=== PATIENT | male | born 1950 | race Caucasian/White ===

== ENCOUNTER 2023-08-18 17:40 | Inpatient (IN) | payer OTHER ==
[2023-08-18] VITALS (12 sets, daily range): BP systolic 100–144; BP diastolic 57–93
[~2023-08-18] VITALS: Ht 172.7 cm; Wt 87.2 kg
[~2023-08-18 17:40] MED LIST: ESCI10 PO; LISI5 PO
[2023-08-18 18:06] LABS: BASOPHILS ABSOLUTE AUTO 0.04 K/mm3 (0.00-0.23); BASOPHILS PERCENT AUTO 0 % (0-2); EOSINOPHILS ABSOLUTE AUTO 0.11 K/mm3 (0.00-0.68); EOSINOPHILS PERCENT AUTO 1 % (0-6); Hematocrit 46.4 % (37.0-53.0); Hemoglobin 15.6 g/dL (13.5-17.5); IMMATURE GRAN ABSOLUTE AUTO 0.04 K/mm3 (0.00-0.10); IMMATURE GRAN PERCENT AUTO 0 % (0-1); LYMPHOCYTES ABSOLUTE AUTO 4.21 K/mm3 (0.84-5.20); LYMPHOCYTES PERCENT AUTO 47 % (21-46); MONOCYTES ABSOLUTE AUTO 0.75 K/mm3 (0.16-1.47); MONOCYTES PERCENT AUTO 8 % (4-13); Mean Corpuscular HGB 36.8 pg (26.0-34.0); Mean Corpuscular HGB Conc 33.6 g/dL (31.5-36.5); Mean Corpuscular Volume 109 fL (80-100); Mean Platelet Volume 10.4 fL (9.1-12.4); NEUTROPHILS ABSOLUTE AUTO 3.89 K/mm3 (1.96-9.15); NEUTROPHILS PERCENT AUTO 43 % (41-73); Platelet Count 158 K/mm3 (150-400); RDW Coefficient Variation 13.2 % (11.7-14.2); RDW Standard Deviation 54.3 fL (35.1-46.3); Red Blood Cell Count 4.24 M/mm3 (4.30-5.90); White Blood Cell Count 9.04 K/mm3 (4.00-11.30)
[2023-08-18 18:08] LABS: Bicarbonate Venous 13.2 mmol/L (24.0-30.0); PCO2 Venous 40.3 mmHg (38-42); pH Blood Venous 7.13 (7.34-7.37)
[2023-08-18 18:25] LABS: International Normalized Ratio 1.14; Prothrombin Time Results 11.9 Sec (9.7-11.5)
[2023-08-18 18:28] LABS: Source, Urine Straight Cath
[2023-08-18 18:30] LABS: Appearance, Urine Clear (Clear); Bilirubin, Urine Neg (Neg); Blood, Urine 5+ (Neg); Color, Urine Yellow (P-Yellow); Glucose Qualitative, Urine Neg (Neg); Ketones, Urine 2+ (Neg); Leukocyte Esterase, Urine Neg (Neg); Nitrite, Urine Neg (Neg); Protein, Urine 2+ (Neg); Urobilinogen, Urine 1+ (Normal)
[2023-08-18 18:43] LABS: U Amphetamine Screen Not Detected; U Barbituate Screen Not Detected; U Benzodiazapine Screen Not Detected; U Buprenorphine Screen Not Detected; U Cannabinoids Screen Not Detected; U Cocaine Screen Not Detected; U Methadone Screen Not Detected; U Methamphetamine Screen Not Detected; U Opiates Screen Not Detected; U Oxycodone Screen Not Detected; U Phencyclidine Screen Not Detected
[2023-08-18 18:48] LABS: Calcium, Blood 8.5 mg/dL (8.5-10.1); Potassium, Blood 4.5 mmol/L (3.5-5.5)
[2023-08-18 18:49] LABS: Bacteria Few /hpf; Squamous Epithelial Cells Rare /hpf (Few)
[2023-08-18 18:49] LABS: Ethanol (Alcohol), Blood, Med <3 mg/dL; Magnesium, Blood 1.6 mg/dL (1.6-2.4)
[2023-08-18 21:20] LABS: Free Thyroxine 0.96 ng/dL (0.70-1.60)
[2023-08-18 21:43] LABS: Base Excess Venous -2.6 mmol/L; PCO2 Venous 49.6 mmHg (38-42); pH Blood Venous 7.29 (7.34-7.37)
--- NOTE | 2023-08-18 22:30 | NUR ---
PT ADMITTED TO ROOM ICU 6 FROM ED ARRIVING AT 0 THIS EVENING. PT SOMNULENT AT THIS TIME. DAUGHTER COMES TO ROOM AND IS ABLE TO ANSWER MEDICAL HISTORY FOR THIS PT. PT HAS HAD SEIZURE AT HOME, AND ONE IN EMERGENCY ROOM. PT HAD BITTEN HIS TONGUE WITH SEIZURE. PT INCONTINENT TO URINE. THIS CHANGED. PT'S DAUGHTER, JUAN RAMON, STATES THAT PT IS INDEPENDENT AT HOME. LIVES BY HIMSELF. ALSO ADDS THAT PT BEGINS TO DRINK HARD ALCOHOL AT 5 PM DAILY AND DRINKS, " MUCH HE CAN GET". LAST DRINK BEING ON 08-17. WILL REVIEW CHART AND PLAN OF CARE FOR THIS PT.
[2023-08-19] VITALS (22 sets, daily range): BP systolic 104–138; BP diastolic 58–91
--- NOTE | 2023-08-19 00:12 | NUR ---
NO SEIZURE ACTIVITIES HAVE BEEN NOTED IN ICU. PT DOES AWAKEN AND IS ABLE TO ANSWER SOME QUESTIONS. IS DISORIENTED, AND PULLS AT GOWN AND LINES. HAS BEEN INCONTINT TO URINE AGAIN. WILL CONTINUE TO MONITOR.
--- NOTE | 2023-08-19 01:35 | NUR ---
PT AWAKENING MORESO. IS ABLE TO URINATE IN URINAL WITH ASSIST WHEN PROMTED. FORGETFUL. NEEDS TO BE REMINDED HE IS IN THE HOSPITAL. DENIES PAIN. NO SEIZURE ACTIVITIES TO NOTE.
--- NOTE | 2023-08-19 03:25 | NUR ---
PT NEEDS FREQUENT REORIENTATION. FORGETS WHY HE IS IN THE HOSPITAL AND HOW HE GOT HERE. PT MAINTAINS WITH 1 LITER OXYGEN PER NASAL CANNULA. SATURATIONS > 90 PERCENT. PT DOES FREQUENTLY PULL AT LINES AND GOWN. NEEDS TO BE INSTRUCTED TO NOT DO SO.
[2023-08-19 03:26] LABS: BASOPHILS ABSOLUTE AUTO 0.02 K/mm3 (0.00-0.23); BASOPHILS PERCENT AUTO 0 % (0-2); EOSINOPHILS PERCENT AUTO 0 % (0-6); Hematocrit 38.2 % (37.0-53.0); Hemoglobin 13.4 g/dL (13.5-17.5); IMMATURE GRAN ABSOLUTE AUTO 0.02 K/mm3 (0.00-0.10); IMMATURE GRAN PERCENT AUTO 0 % (0-1); LYMPHOCYTES PERCENT AUTO 12 % (21-46); MONOCYTES ABSOLUTE AUTO 0.59 K/mm3 (0.16-1.47); MONOCYTES PERCENT AUTO 8 % (4-13); Mean Corpuscular HGB 35.9 pg (26.0-34.0); Mean Corpuscular HGB Conc 35.1 g/dL (31.5-36.5); Mean Platelet Volume 10.1 fL (9.1-12.4); NEUTROPHILS ABSOLUTE AUTO 6.17 K/mm3 (1.96-9.15); NEUTROPHILS PERCENT AUTO 80 % (41-73); Platelet Count 118 K/mm3 (150-400); RDW Standard Deviation 49.2 fL (35.1-46.3); Red Blood Cell Count 3.73 M/mm3 (4.30-5.90)
[2023-08-19 03:29] LABS: Mean Corpuscular Volume 102 fL (80-100)
[2023-08-19 03:40] LABS: Albumin, Blood 3.1 g/dL (3.4-5.0); Albumin/Globulin Ratio 0.9 (0.8-1.8); Bilirubin, Total 1.9 mg/dL (0.1-1.0); Bun/Creatinine Ratio 8.5 (12.0-20.0); Calcium, Blood 7.9 mg/dL (8.5-10.1); Creatinine, Blood 0.94 mg/dL (0.60-1.20); Globulin, Blood 3.3 g/dL (2.2-4.0); Magnesium, Blood 2.1 mg/dL (1.6-2.4); Potassium, Blood 4.1 mmol/L (3.5-5.5); Total Protein, Blood 6.4 g/dL (6.4-8.2)
--- NOTE | 2023-08-19 06:54 | NUR ---
TRANSFERRED PT FROM ROOM ICU 6 TO ROOM ICU 11 FOR STAFFING REASONS. PT IN AGREEMENT WITH TRANSFER. PT IS ABLE TO STATE THAT HE IS AT [facility]. DOES CONTINUE TO PULL OFF HIS GOWN. IS NOT ABLE TO GIVE RATIONALE FOR REMOVING GOWN FREQUENTLY. PT UNFORTUNATELY DISLODGED IV FROM LEFT AC WHILE PULLING AT LINES AND GOWN. THIS IV BEING FIELD START IV. NO SEIZURE ACTIVITIES TO NOTE. BLADDER SCAN DONE WHICH REVEALS 199 ML URINE. WILL CONTINUE TO MONITOR PT, AND WILL REPORT OFF TO ONCOMING RN.
--- NOTE | 2023-08-19 07:00 | NUR ---
ASSUMPTION OF CARE PT IS AWAKE DURING BEDSIDE REPORT. HE PARTICIPATES IN CONVERSATION AND IS A&O4. HE STS HE DOES NOT REMEMBER THE SEIZURE, BUT REMEMBERS SITTING AND WATCHING A BALL GAME ON TV WITH HIS GRANDSON. HE DOES REPORT A MILD HEADACHE. NO TREMORS NOTED. HE IS ON RA WITH SPO2 >90%. LUNGS ARE CLEAR. NSR ON MONITOR WITH OCCASIONAL PACS, RATE IN 60S. BP STABLE WITH MAP >65. PT REQUESTS WATER. BEDSIDE SWALLOW PERFORMED AND PT TOLERATED WELL. PER PT AND DAUGHTER, HE HAS A DECREASED APPETITE AT [place] AND EATS ABOUT 1 MEAL A DAY. OFFERED BREAKFAST OR SUPPLEMENTAL SHAKE, PT DENIED. PT HAD ONE INCONTINENT VOID AND USED THE URINAL ONCE. BED IN LOW POSITION, BED ALARM ON, CALL LIGHT IN PT'S HAND.
--- NOTE | 2023-08-19 09:41 | NUR ---
UPDATE PT REPORTS HE DRINKS 2-3 WHISKEY DRINKS PER NIGHT. HE GENERALLY BEGINS DRINKING AT APPROX 1700. HE DENIES RECENT INCREASE OR DECREASE IN ALCOHOL CONSUMPTION. PT REPORTS HIS LAST DRINK WAS 08/18 BUT PT'S GRANSON AND FAMILY REPORTS WITNESSING LAST DRINK 08/17. PT REPORTS NO HISTORY OF SEIZURES. APPROX 2 YEARS AGO, PT HAD COVID AND DID NOT CONSUME ALCOHOL FOR AN ESTIMATED 2 WEEKS WITHOUT SIDE EFFECTS. PT'S SPOUSE WAS HOSPITALIZED 08/12/22 AND DECREASED 08/26/23. HE REPORTS STILL GRIEVING HER LOSS AND WHEN ASKED IF ALCOHOL CONSUMPTION HAS INCREASED SINCE PER PASSING HE STS "WELL MAYBE". PT DOES LIVE ALONE BUT HAS MULTIPLE FAMILY MEMBERS WHO TALK TO HIM VIA TELEPHONE DAILY.
--- NOTE | 2023-08-19 12:07 | NUR ---
PT TAKEN TO MRI VIA CART AT THIS TIME
--- NOTE | 2023-08-19 16:21 | NUR ---
UPDATE PT REMAINS ALERT AND ORIENTED. HE REPORTS FEELING TIRED AND DAUGHTER REPORTS HE SEEMS "GROGGY" COMPARED TO HIS BASELINE. HE ASSISTS WITH REPOSITIONING AND CARE. VSS THROUGHOUT THE DAY. HE CONTINUES TO HAVE 2/10 HEADACHE, MEDICATED PER EMAR. TONGUE REMAINS SOMEWHAT SWOLLEN. HE HAS VOIDED TWICE TODAY, DENIES NEED TO VOID AT THIS TIME. PLAN TO TRANSITION PT TO ROOM 338.
--- NOTE | 2023-08-19 16:55 | NUR ---
TRANSFER PT TRANSFERRED TO ROOM 338 VIA BED WITH ALL BELONGINGS AND FAMILY MEMBERS. NURIS MILLER AT BEDSIDE.
--- NOTE | 2023-08-19 17:54 | NUR ---
PT TRANSFERED FROM ICU. ABLE TO MAKE NEEDS KNOWN. FAMILY IS AT BEDSIDE. ALERT AND ORIENTED X4. R/A.
[2023-08-20 03:26] VITALS: BP 127/79
--- NOTE | 2023-08-20 04:52 | NUR ---
CHARGEBACK SPECIALIST SUMMARY VSS. SHIFT BEGAN WITH PT A/O X 4. DAUGHTER AT BEDSIDE NOTED PT BEGAN TO SHOW CONFUSION. SOME ATTEMPTS TO GET OUT OF BED, VOICING SOME INCOHEREENT STATEMENTS. VSS, NEURO CHECK WNL, BUT VERBAL RESPONSE DISPLAYED QUICK FORGETFULNESS TO INSTRUCTIONS GIVEN. SOME SLIGHT SLOW MOVEMENTS NOTED. DAUGHTER VOICED HX ETOH ABUSE, PRN ATIVAN 2 MG ADMINISTERED TO CALM PT. PT CONTINUED TO TRY TO GET OOB. BED ALARM ON AND RAILS UP X 3 FOR SAFETY. STAFF DISCUSSED POSSIBLE NEED FOR ALEX RESTRAINT, BUT DAUGHTER VOICED SHE WANTED TO REMAIN AT HER FATHERS SIDE FOR HIS COMFORT INSTEAD. IV MEDS ADMINISTERED - SEE MAR FOR DETAILS. HAS BEEN RESTING QUIETLY AT INTERVALS THROUGH SHIFT. HAS NOT GETTEN OUT OF BED, NO NOTED SEIZURE ACTIVITY OBSERVED. CALL LIGHT IN REACH. WILL CONTINUE TO MONITOR
[2023-08-20 05:47] LABS: BASOPHILS ABSOLUTE AUTO 0.02 K/mm3 (0.00-0.23); BASOPHILS PERCENT AUTO 0 % (0-2); EOSINOPHILS ABSOLUTE AUTO 0.05 K/mm3 (0.00-0.68); EOSINOPHILS PERCENT AUTO 1 % (0-6); Hematocrit 38.2 % (37.0-53.0); Hemoglobin 13.3 g/dL (13.5-17.5); IMMATURE GRAN ABSOLUTE AUTO 0.02 K/mm3 (0.00-0.10); IMMATURE GRAN PERCENT AUTO 0 % (0-1); LYMPHOCYTES ABSOLUTE AUTO 1.84 K/mm3 (0.84-5.20); LYMPHOCYTES PERCENT AUTO 29 % (21-46); MONOCYTES ABSOLUTE AUTO 0.72 K/mm3 (0.16-1.47); MONOCYTES PERCENT AUTO 12 % (4-13); Mean Corpuscular HGB Conc 34.8 g/dL (31.5-36.5); Mean Corpuscular Volume 104 fL (80-100); Mean Platelet Volume 10.4 fL (9.1-12.4); NEUTROPHILS PERCENT AUTO 58 % (41-73); Platelet Count 99 K/mm3 (150-400); RDW Standard Deviation 49.5 fL (35.1-46.3); Red Blood Cell Count 3.69 M/mm3 (4.30-5.90); White Blood Cell Count 6.25 K/mm3 (4.00-11.30)
[2023-08-20 06:18] LABS: Albumin, Blood 2.9 g/dL (3.4-5.0); Albumin/Globulin Ratio 0.9 (0.8-1.8); Bilirubin, Total 2.5 mg/dL (0.1-1.0); Bun/Creatinine Ratio 8.5 (12.0-20.0); Calcium, Blood 8.1 mg/dL (8.5-10.1); Creatinine, Blood 0.94 mg/dL (0.60-1.20); Globulin, Blood 3.2 g/dL (2.2-4.0); Potassium, Blood 3.8 mmol/L (3.5-5.5); Total Protein, Blood 6.1 g/dL (6.4-8.2)
[2023-08-20 06:25] LABS: Source, Urine Clean Catch
[2023-08-20 06:41] LABS: Blood, Urine 3+ (Neg); Glucose Qualitative, Urine Neg (Neg); Ketones, Urine 2+ (Neg); Leukocyte Esterase, Urine Neg (Neg); Nitrite, Urine Neg (Neg); Protein, Urine 1+ (Neg); Urobilinogen, Urine 3+ (Normal)
[2023-08-20 07:02] LABS: Bilirubin, Urine 1+ (Neg)
[2023-08-20 07:03] LABS: Appearance, Urine Turbid (Clear); Color, Urine Orange (P-Yellow)
[2023-08-20 07:05] LABS: Amorphous Heavy (0-Heavy); Bacteria Few /hpf; Squamous Epithelial Cells Not Seen /hpf (Few); White Blood Cells, Urine 0-2 /hpf (0-5)
[2023-08-20 08:41] VITALS: BP 137/72
--- NOTE | 2023-08-20 15:58 | NUR ---
DISCHARGE: PT D/C @1555 VIA WHEELCHAIR WITH DAUGHTER AND SON IN LAW. NO NEW MEDICATIONS. PT EDUCATED ON ALCOHOL DISORDER AND ENCOURAGEMENT TO STOP/CUT BACK ON DRINKING. PT AND/OR DAUGHTER WILL CALL TO MAKE FOLLOW-UP APPOINTMENT WITH [facility] WITHIN ONE WEEK. IV IN SILVIA/AC REMOVED W/O COMPLICATIONS. PT DAUGHTER HAD CONCERNS ABOUT RASH FOLLOWING SOME BANDAGES/WRAPS. EDUCATED TO ATTEMPT TO BUY LATEX FREE BANDAGES AND SUGGESTED HYDROCORTISONE CREAM. PT STATES HE HAS SOME AT HOME HE CAN USE.
== END 2023-08-20 15:52 | disposition home or self-care (01) | DRG 897 ==
LOC: ER 17:40 → ICUE 20:10 → MEDS 08-19 16:37
PROVIDERS: Emergency Medicine; Family Medicine; Nurse Practitioner Acute Care; ADMIT Internal Medicine
PROC: HZ2ZZZZ Detoxification Services for Substance Abuse Treatment (ICD-10-PCS; principal; 2023-08-18)
DX: F10.239 Alcohol dependence with withdrawal, unspecified (principal); G40.89 Other seizures; I10 Essential (primary) hypertension; F32.A Depression, unspecified; E03.8 Other specified hypothyroidism; S09.93XA Unspecified injury of face, initial encounter; X58.XXXA Exposure to other specified factors, initial encounter; Y90.0 Blood alcohol level of less than 20 mg/100 ml; Z87.891 Personal history of nicotine dependence
CPT/HCPCS: 36415; 51701; 70450; 70496; 70498; 70551; 71045; 80048; 80053; 81001; 82803; 83605; 83735; 84439; 84443; 84484; 85025; 85610; 93005; 93010; 94760; 94762; 96365; 96368; 96375; 97116; 97161; 99285-25; A9270; J1650; J1953; J2060; J2560; J3411; J3475; J7042; J7050; J7120; Q9967